=== PATIENT | female | born 1950 | race Caucasian/White ===

== ENCOUNTER 2017-12-24 15:24 | Observation (INO) | payer MEDICARE, OTHER ==
--- NOTE | 2017-12-24 15:46 | RAD ---
AP CHEST: History: Chest pain Comparison: None. FINDINGS: Lungs are clear. Cardiomediastinal silhouette is within normal limits. No acute osseous abnormality i s evident. IMPRESSION: No acute cardiopulmonary abnormality. POS: [facility]
[2017-12-24 15:57] LABS: #Eosinphils 0.2 thou/uL (0.0-0.7); #Lymphocytes 1.7 thou/uL (1.20-3.40); #Monocytes 0.3 thou/uL (0.11-0.59); #Neutrophils 3.9 thou/uL (1.40-6.50); %Basophils 0.2 % (0.0-1.0); %Eosinophils 2.6 % (0.0-10.0); %Lymphocytes 27.9 % (21.0-51.0); %Monocytes 5.1 % (0.0-10.0); %Neutrophils 64.1 % (42.0-75.0); Hemoglobin 14.6 g/dL (12.0-16.0); Mean Corpuscular HGB CONC 34.3 g/dL (32.0-36.0); Mean Corpuscular Hemoglobin 31.5 pg (27.0-31.0); Mean Corpuscular Volume 91.9 fl (81.0-99.0); Mean Platelet Volume 7.3 fL (7.4-10.4); Platelet Count 229 thou/uL (130-400); RBC Distribution Width 11.9 % (11.5-14.5); Red Blood Cell (RBC) Count 4.63 mill/uL (4.20-5.40); White Blood Cell (WBC) Count 6.1 thou/uL (4.8-10.8)
[2017-12-24 16:19] LABS: ALT (SGPT) 24 U/L (8-55); AST (SGOT) 26 U/L (5-34); Albumin 4.3 g/dL (3.4-4.8); Alkaline Phosphatase 90 U/L (40-150); Anion Gap 14 mmol/L (10-20); BUN (Urea Nitrogen) 17 mg/dL (9.8-20.1); Bilirubin, Total 0.4 mg/dL (0.2-1.2); CK (CPK) 91 U/L (29-168); Calc. Creatinine Clearance 0 mL/min (70-130); Calcium 9.8 mg/dL (7.8-10.44); Carbon Dioxide 25 mmol/L (23-31); Chloride 105 mmol/L (98-107); Estimated GFR-MDRD 73; Globulin 3.1 g/dL (2.4-3.5); Glucose 131 mg/dL (80-115); Protein, Total 7.4 g/dL (6.0-8.3); Sodium 140 mmol/L (136-145)
[2017-12-24 16:23] LABS: CKMB 1.4 ng/mL (0-6.6); Troponin I Less than 0.010 ng/mL (< 0.028)
[2017-12-24] MEDS ORDERED: Nitroglycerin 0.4 MG TAB (25 Tab Bottle) ONE (17:03)
[2017-12-24] MEDS ORDERED: Ondansetron HCl/PF 4 MG/2 ML Vial IVP PRN (20:13)
[2017-12-24] MEDS ORDERED: Nitroglycerin 0.4 MG TAB (25 Tab Bottle) PO PRN (20:13)
[2017-12-24] MEDS ORDERED: Bisacodyl 5 MG TAB PO PRN (20:13)
[2017-12-24] MEDS ORDERED: Acetaminophen 650 MG Suppository PR PRN (20:13)
[2017-12-24] MEDS ORDERED: Acetaminophen 325 MG TAB PO PRN (20:13)
[2017-12-24] MEDS ORDERED: hydrALAZINE 20 MG/ML VIAL SLOW IVP PRN (20:15)
--- NOTE | 2017-12-24 20:42 | HP ---
PRIMARY CARE PHYSICIAN: Augusta Watt M.D. CHIEF COMPLAINT: Chest discomfort. HISTORY OF PRESENT ILLNESS: Ms. Peralta is a pleasant 67-year-old lady, who was seen at [facility] on 12/24/2017. She reports that since yesterday, she has been having on and off retrosternal chest discomfort. She describes it as pressure-like, nonradiating, currently 0 out of 10, on and off, no known aggravating or relieving factors, accompanied by shortness of breath and nausea. She denies any lightheadedness or diaphoresis. She came to the emergency room because of ongoing chest discomfort. She received ni trates in the emergency room with relief of the chest discomfort. She reports that she had similar c hest pressure prior to her ablation for atrial flutter/atrial fibrillation. REVIEW OF SYSTEMS: The following complete review of systems was negative, unless otherwise mentioned in the HPI or below: Constitutional: Weight loss or gain, ability to conduct usual activities. Skin: Rash, itching. Eyes: Double vision, pain. ENT/Mouth: Nose bleeding, neck stiffness, pain, tenderness. Cardiovascular: Palpitations, dyspnea on exertion, orthopnea. Respiratory: Shortness of breath, wheezing, cough, hemoptysis, fever or night sweats. Gastrointestinal: Poor appetite, abdominal pain, heartburn, nausea, vomiting, constipation, or diarrhea. Genitourinary: Urgency, frequency, dysuria, nocturia. Musculoskeletal: Pain, swelling. Neurologic/Psychiatric: Anxiety, depression. Allergy/Immunologic: Skin rash, bleeding tendency. PAST MEDICAL HISTORY: Significant for atrial fibrillation/atrial flutter, hypertension, hypothyroidi sm, dyslipidemia. PAST SURGICAL HISTORY: Ablation for atrial fibrillation/flutter, tubal , tonsillectomy. SOCIAL HISTORY: No history of tobacco use, alcohol use or recreational drug use. FAMILY HISTORY: Hypertension in her mother, coronary artery disease in her maternal grandmother. CODE STATUS: I discussed her code status. She is FULL CODE. Her is the surrogate decision maker. ALLERGIES: PENICILLIN. CURRENT MEDICATIONS: Doses need to be clarified, but she is on metoprolol, levothyroxine, Lipitor, a spirin, Ocuvite, and multivitamins. PHYSICAL EXAMINATION: GENERAL: Ms. Peralta is awake and alert, not in acute distress. VITAL SIGNS: Blood pressure is 93/61, pulse is 73. She is breathing at rate of 19 and saturating we ll on room air. She is afebrile. EYES: No scleral icterus. No conjunctival pallor. ENT: Moist mucosal membranes. No oropharyngeal erythema or exudates. NECK: Supple, nontender, normal range of movement, trachea is midline. RESPIRATORY: Accessory muscles of breathing are not active. Chest wall movements are symmetric bila terally. Lungs are clear to auscultation without wheeze, rhonchi or crepitations. CARDIOVASCULAR: S1 and S2 are heard, regular. Peripheral pulses palpable. No carotid bruit, no per icardial rub. ABDOMEN: Soft, nontender, bowel sounds are heard, no hepatomegaly, no splenomegaly. NEUROLOGIC: Cranial nerves II-XII intact. Deep tendon reflexes are 2+. MUSCULOSKELETAL: Power is 5/5 in all 4 extremities, normal range of movement at all major extremity joints. LYMPHATIC: No cervical lymphadenopathy. SKIN: No rashes or subcutaneous nodules. PSYCHIATRIC: Normal mood, normal affect, the patient is oriented to person, place, and time. LABORATORY DATA: Ms. Peralta's labs and investigations were reviewed. I reviewed her electrocardi ogram, which shows normal sinus rhythm, no ST changes to suggest an acute coronary syndrome. I also reviewed her chest x-ray, which does not show any pulmonary infiltrates. She has an unremarkable CBC and an unremarkable comprehensive metabolic profile. Troponin I is normal. ASSESSMENT AND PLAN: Ms. Peralta is a pleasant 67-year-old lady, who was seen at [facility] on 12/24/2017. Her problem list includes: 1. Chest pain: Ms. Peralta is presenting with chest pain. She reports relief with nitrate. She will be admitted to the hospital for further workup, including a stress test. 2. Hypothyroidism: Resume levothyroxine once doses clarified. 3. Atrial fibrillation/flutter: Status post ablation, currently in normal sinus rhythm. 4. Hypertension: Monitor vital signs, titrate antihypertensives as needed. 5. Dyslipidemia: Continue statin. Many thanks for allowing me to participate in your patient's care. Please feel free to contact me wi th any questions or concerns. LEVEL OF RISK: High. LEVEL OF COMPLEXITY: High.
[2017-12-24 20:49] LABS: Troponin I Less than 0.010 ng/mL (< 0.028)
[2017-12-24 23:25] LABS: Troponin I Less than 0.010 ng/mL (< 0.028)
[2017-12-25 05:46] LABS: #Eosinphils 0.2 thou/uL (0.0-0.7); #Lymphocytes 2.4 thou/uL (1.20-3.40); #Monocytes 0.4 thou/uL (0.11-0.59); #Neutrophils 3.1 thou/uL (1.40-6.50); %Basophils 0.5 % (0.0-1.0); %Eosinophils 2.9 % (0.0-10.0); %Lymphocytes 39.6 % (21.0-51.0); %Monocytes 6.7 % (0.0-10.0); %Neutrophils 50.3 % (42.0-75.0); Hemoglobin 13.7 g/dL (12.0-16.0); Mean Corpuscular HGB CONC 34.3 g/dL (32.0-36.0); Mean Corpuscular Hemoglobin 31.5 pg (27.0-31.0); Mean Corpuscular Volume 91.6 fl (81.0-99.0); Mean Platelet Volume 7.3 fL (7.4-10.4); Platelet Count 209 thou/uL (130-400); RBC Distribution Width 11.8 % (11.5-14.5); Red Blood Cell (RBC) Count 4.37 mill/uL (4.20-5.40); White Blood Cell (WBC) Count 6.1 thou/uL (4.8-10.8)
[2017-12-25 05:54] LABS: Anion Gap 13 mmol/L (10-20); BUN (Urea Nitrogen) 14 mg/dL (9.8-20.1); Calc. Creatinine Clearance 84 mL/min (70-130); Calcium 9.3 mg/dL (7.8-10.44); Carbon Dioxide 26 mmol/L (23-31); Chloride 106 mmol/L (98-107); Estimated GFR-MDRD 81; Glucose 93 mg/dL (80-115); Potassium 4.1 mmol/L (3.5-5.1); Sodium 141 mmol/L (136-145)
[2017-12-25] MEDS ORDERED: Aspirin 325 MG TAB PO SCH (08:00)
[2017-12-25] MEDS ORDERED: Enoxaparin Sodium 40 MG/0.4 ML SYRINGE SC SCH (09:00)
[2017-12-25 12:06] VITALS: BP 132/74; TEMP 98
--- NOTE | 2017-12-25 13:05 | NM ---
CARDIAC SPECT WITH EJECTION FRACTION AND WALL MOTION: HISTORY: 67-year-old female with history of chest pain. Prior atrial fibrillation/flutter, status post ablatio n, with hypertension and dyslipidemia. TECHNIQUE/FINDINGS: The patient was injected with 31 mCi technetium-99m sestamibi intravenously for stress images and pat ient was injected with 9.8 mCi of technetium-99m sestamibi intravenously for resting images. Multiple SPECT images in the short axis, vertical long axis, and horizontal long axis demonstrate no scan evidence for infarct or ischemia. TID: 1.08 LHR: 0.45 EDV: 46 mL EF: 86% MYOCARDIAL PERFUSION WALL MOTION: Wall motion is unremarkable. IMPRESSION: Unremarkable cardiac SPECT with ejection fraction and wall motion. POS: [facility]
--- NOTE | 2017-12-25 14:17 | DIS ---
DATE OF ADMISSION: 12/24/2017 DATE OF DISCHARGE: 12/26/2007 CONDITION AT THE TIME OF DISCHARGE: Stable and improved. DISCHARGE DISPOSITION: Home. PRIMARY CARE PHYSICIAN: None. The patient will establish care. She is given a list of primary care physicians in the area. DISCHARGE DIAGNOSES: 1. Chest pain, noncardiac, and atypical. Acute coronary syndrome ruled out. 2. History of atrial flutter, status post ablation. 3. Hypertension. 4. Hypothyroidism. 5. Dyslipidemia. DISCHARGE MEDICATIONS: Remain the same as admission medication, Lopressor 25 mg p.o. b.i.d., levothy roxine 88 mcg daily, Lipitor 10 mg every other day, aspirin 81 mg daily. PROCEDURES DONE IN THE HOSPITAL: Nuclear medicine stress test, which is negative for any reversible or fixed defects. No wall motion abnormality. Estimated EF of 86%. DISCHARGE FOLLOWUP: The patient is given referral to follow up with Cardiology, Dr. Rodrigues, in 4-6 w wiyot of time to establish new patient care. HOSPITAL COURSE: Ms. Peralta is a very pleasant 67-year-old female, who has been seen at [facility] up until now with regard to her history of atrial flutter and has ablation done by Dr. Deep Perez. She came to the hospital with complaints of on and off substernal chest pain, which was press ure-like sensation and nonradiating with some shortness of breath and nausea. In the emergency room, her pain was relieved by some nitroglycerin. She was otherwise hemodynamically stable. EKG and car diac enzyme and chest x-ray were unremarkable. Please see admission history and physical for further details. HOSPITAL COURSE: She remained hemodynamically stable and asymptomatic throughout the rest of her hos pitalization. Stress test was done and was normal. Serial cardiac enzymes were done and they remain ed negative. She was restarted on her home medication and tolerated it very well. On the day of discharge, she is back to herself, being herself, and is symptom free. She was seen an d examined prior to discharge. PHYSICAL EXAMINATION: Include, VITAL SIGNS: Temperature 98, heart rate 91, respirations 18, saturating 97% on room air, blood press ure 132/74. GENERAL: No acute distress, awake, alert, and oriented x3. Her is at bedside. CHEST: Clear to auscultation bilaterally. Rate and rhythm is regular. LABORATORY EXAMINATION: Troponin less than 0.010 x3. CK-MB 1.4, otherwise CBC and serum chemistries are unremarkable. At this time, she is requesting referral to a new hand knitter, as her insurance has changed from [email or web address] and [employer]. She is given referral to the [facility] at [place] and also instructed to fo llow up and establish care with a new primary care physician with [facility] and she verbalized u nderstanding.
[2017-12-25] MEDS ORDERED: ADENOSINE 60 MG/20 ML VIAL ONE (17:05)
[2017-12-25] MEDS ORDERED: Atorvastatin Calcium 10 MG TAB PO SCH (21:00)
[2017-12-25] MEDS ORDERED: Metoprolol Tartrate 25 MG TAB PO SCH (21:00)
[2017-12-26] MEDS ORDERED: Levothyroxine Sodium 88 MCG TAB PO SCH (06:00)
--- NOTE | 2017-12-28 15:48 | EKG ---
Test Reason : Blood Pressure : / mmHG Vent. Rate : 070 BPM Atrial Rate : 070 BPM P-R Int : 132 ms QRS Dur : 070 ms QT Int : 392 ms P-R-T Axes : 035 -12 -05 degrees QTc Int : 423 ms Normal sinus rhythm Minimal voltage criteria for LVH, may be normal variant Borderline ECG Confirmed by ERIK Pat, SUMIT ([id number]), society editor JANKI RIVERA ([id number]) on 12/28/2017 3:47:34 PM Referred By: Confirmed By:SUMIT VALENCIA M.D.
--- NOTE | 2017-12-29 13:35 | STRESS ---
Acquisition Time: 2017-12-25 10:01:20 Total Exercise Time: 00:04:00 Test Indications: CHEST PAIN Medications: Protocol: ADENOSINE Max HR: 120 BPM 77% of Pred: 154 BPM Max BP: 142/080 mmHG Max Work Load: 1.0 METS RESTING ECG: NORMAL SINUS RHYTHM AT 72 BPM WITH NON-SPECIFIC ST SEGMENT AND T-WAVE CHANGES SYMPTOMS: HEADACHE NORMAL BP RESPONSE ECTOPY: RARE PAC'S ECG STRESS: NO SIGNIFICANT CHANGES INTERPRETATION: INDETERMINATE ECG/AWAIT NUCLEAR IMAGES FOR DEFINITIVE DIAGNOSIS Confirmed by CT ELLIS ([id number]) on 12/29/2017 1:35:22 PM Referred By: MD Rosa BAEZA Confirmed By:CT ELLIS
== END 2017-12-25 14:24 | disposition home or self-care (01) ==
LOC: ERS 15:24 → 2SW 20:49
PROVIDERS: ADMIT Internal Medicine; ATTEND Internal Medicine
DX: Z98.890 Other specified postprocedural states; Z82.49 Family history of ischemic heart disease and other diseases of the circulatory system; E03.9 Hypothyroidism, unspecified; E78.5 Hyperlipidemia, unspecified; I48.92 Unspecified atrial flutter; Z79.899 Other long term (current) drug therapy; Z88.0 Allergy status to penicillin; I10 Essential (primary) hypertension; R07.89 Other chest pain
CPT/HCPCS: 71045; 78452; 80048; 80053; 82550; 82553; 84484 ×2; 85025 ×2; 93005; 93017; 94760 ×2; 99285; A9500; G0378; 36415; J0153; J1650

== ENCOUNTER 2018-03-15 10:29 | Outpatient (CLI) | payer MEDICARE | END 2018-03-15 10:30 | disposition home or self-care (01) | LOC: BICMAMMO 10:29 | PROVIDERS: ATTEND Family Medicine | DX: Z12.31 Encounter for screening mammogram for malignant neoplasm of breast (principal); M81.0 Age-related osteoporosis without current pathological fracture; R92.1 Mammographic calcification found on diagnostic imaging of breast | CPT/HCPCS: 77063; 77067; 77080 ==

== ENCOUNTER 2019-03-17 08:39 | Outpatient (CLI) | payer MEDICARE ==
--- NOTE | 2019-03-17 09:59 | MMO ---
Bilateral MAMMO Bilat Screen [facility]. CLINICAL HISTORY: Patient is 68 years old and is seen for screening. The patient has no family history of breast cancer. The patient has no personal history of cancer. VIEWS: The views performed were: bilateral craniocaudal with tomosynthesis and bilateral mediolateral oblique with tomosynthesis. FILMS COMPARED: The present examination has been compared to a prior imaging study performed at [facility] on 03/15/2018. MAMMOGRAM FINDINGS: There are scattered fibroglandular densities. Benign calcifications are noted bilaterally. There are no suspicious masses, suspicious calcifications, or new areas of architectural distortion. IMPRESSION: THERE IS NO MAMMOGRAPHIC EVIDENCE OF MALIGNANCY. A ROUTINE FOLLOW-UP MAMMOGRAM IN 1 YEAR IS RECOMMENDED. THE RESULTS OF THIS EXAM WERE SENT TO THE PATIENT. ACR BI-RADS Category 2 - Benign finding MAMMOGRAPHY NOTE: 1. A negative mammogram report should not delay a biopsy if a dominant of clinically suspicious mass is present. 2. Approximately 10% to 15% of breast cancers are not detected by mammography. 3. Adenosis and dense breasts may obscure an underlying neoplasm.
== END 2019-03-17 08:40 | disposition home or self-care (01) ==
LOC: BICMAMMO 08:39
PROVIDERS: ATTEND Family Medicine
DX: Z12.31 Encounter for screening mammogram for malignant neoplasm of breast (principal)
CPT/HCPCS: 77063; 77067

== ENCOUNTER 2020-03-20 08:30 | Outpatient (CLI) | payer MEDICARE ==
--- NOTE | 2020-03-20 09:56 | MMO ---
Bilateral MAMMO Bilat Screen [facility]. CLINICAL HISTORY: Patient is 69 years old and is seen for screening. The patient has no family history of breast cancer. The patient has no personal history of cancer. VIEWS: The views performed were: bilateral craniocaudal with tomosynthesis and bilateral mediolateral oblique with tomosynthesis. FILMS COMPARED: The present examination has been compared to prior imaging studies performed at [facility] on 03/15/2018 and 03/17/2019, and at [facility] on 02/04/2016 and 02/17/2017. This study has been interpreted with the assistance of computer-aided detection. MAMMOGRAM FINDINGS: There are scattered fibroglandular densities. There are benign appearing calcifications seen in both breasts. There are no suspicious masses, suspicious calcifications, or new areas of architectural distortion. IMPRESSION: THERE IS NO MAMMOGRAPHIC EVIDENCE OF MALIGNANCY. A ROUTINE FOLLOW-UP MAMMOGRAM IN 1 YEAR IS RECOMMENDED. THE RESULTS OF THIS EXAM WERE SENT TO THE PATIENT. ACR BI-RADS Category 2 - Benign finding MAMMOGRAPHY NOTE: 1. A negative mammogram report should not delay a biopsy if a dominant of clinically suspicious mass is present. 2. Approximately 10% to 15% of breast cancers are not detected by mammography. 3. Adenosis and dense breasts may obscure an underlying neoplasm. Reported by: MALDONADO GANNON MD Electonically Signed: [id number]
== END 2020-03-20 08:31 | disposition home or self-care (01) ==
LOC: BICMAMMO 08:30
PROVIDERS: ATTEND Nurse Practitioner Family
DX: Z12.31 Encounter for screening mammogram for malignant neoplasm of breast (principal)
CPT/HCPCS: 77063; 77067